=== PATIENT | female | born 1945 | race Caucasian/White ===

== ENCOUNTER 2022-11-02 09:37 | Emergency (ER) | payer OTHER, SELFPAY ==
[2022-11-02] VITALS (24 sets, daily range): BP systolic 177–236; BP diastolic 72–99; PULSE 55–79; RESP 16; TEMP 36.2–36.5; O2SAT 96–100; BMI 22.7
--- NOTE | 2022-11-02 10:28 | CRLHL7_ITS ---
For Patients: As a result of the Century Cures Act, medical imaging exams and procedure reports are released immediately into your electronic medical record. You may view this report before your referring provider. If you have questions, please contact your health care provider. INDICATION: Memory loss, confusion TECHNIQUE: CT head without contrast. COMPARISON: None FINDINGS: CSF spaces: Within normal limits for age. Brain parenchyma: The lopez-white differentiation is normal. No sign of mass, hemorrhage, or midline shift. Skull base and calvarium: The visualized paranasal sinuses and mastoid air cells demonstrate no acute or significant findings. The visualized orbits are grossly unremarkable. No skull fractures. IMPRESSION: Unremarkable noncontrast head CT. Dictated by Yuri Otto MD @ 11/02/2022 12:18:18 PM Please note that all CT scans at this facility use dose modulation, iterative reconstruction, and/or weight-based dosing when appropriate to reduce radiation dose to as low as reasonably achievable. Dictated by: Yuri Otto MD @ 11/02/2022 12:18:23 (Electronically Signed)
--- NOTE | 2022-11-02 10:28 | ED.GENADULT ---
HPI - General Adult General Time Seen by Provider: 10:31 Date Seen: 11/02/22 Chief complaint: Neuro Symptoms/Altered Deficit Stated complaint: neurological/memory issues Time Seen by Provider: 11/02/22 09:38 Source: patient and family Mode of arrival: ambulatory Limitations: no limitations History of Present Illness HPI narrative: Patient is a 77-year-old female with a history of high blood pressure, hypothyroidism presenting to emergency department for increased memory loss. Patient has been being evaluated for Alzheimer in the past and has been started on donepezil. Her states her memory losses been worse over the past 2 weeks. She stated she has concerns of brain bleed in 1 week and will need a brain scan to make sure. Her states that he will be talking to her normally when she will randomly forget what they were talking about. Her son states that he has also noticed memory issues but has not noticed as profound problems as the patient and . She does have a neurologist appointment scheduled for January. She was able to remember when she schedule it in when it is. She spoke to them on the phone and they are trying to get her in sooner. She denies weakness, numbness, headache, vision changes, nausea, chest pain, shortness of breath. Related Data Home Medications Medication Instructions Recorded Confirmed aspirin 81 mg capsule 81 mg PO DAILY 11/02/22 11/02/22 donepezil 10 mg tablet 10 mg PO DAILY 11/02/22 11/02/22 latanoprost 0.005 % eye drops 1 drp ophthalmic (eye) QPM 11/02/22 11/02/22 levothyroxine 25 mcg tablet 25 mcg PO DAILY 11/02/22 11/02/22 losartan 50 mg tablet 50 mg PO DAILY 11/02/22 11/02/22 sertraline 25 mg tablet 50 mg PO QPM 11/02/22 11/02/22 simvastatin 20 mg tablet 20 mg PO QPM 11/02/22 11/02/22 Allergies Allergy/AdvReac Type Severity Reaction Status Date / Time No Known Drug Allergies Allergy Verified 11/02/22 10:09 [facility] Social History Smoking Status: Never smoker Do you use any of these nicotine containing products: None Second hand tobacco smoke exposure: No How often do you have a drink containing alcohol: 4 or more times a week How many standard drinks containing alcohol do you have on a typical day: 1 or 2 AUDIT-C Alcohol total score: 4 Non-prescribed substance use: denies use service: No Exam Const: Vital Signs, click to edit/add: Vital Signs - 24 hr 11/02/22 10:11 11/02/22 10:17 11/02/22 10:21 Temperature 97.7 F Pulse Rate 79 61 Pulse Rate [Pulse Oximeter] 69 Respiratory Rate 16 Blood Pressure 187/85 H Blood Pressure [Le ft Upper Arm] 192/72 H Pulse Oximetry 99 96 99 Oxygen Delivery Me thod Room Air 11/02/22 10:22 11/02/22 10:30 11/02/22 10:42 Temperature Pulse Rate 64 64 60 Pulse Rate [Pulse Oximeter] Respiratory Rate 16 Blood Pressure 191/89 H 195/83 H Blood Pressure [Le ft Upper Arm] Pulse Oximetry 99 99 100 Oxygen Delivery Me thod 11/02/22 10:45 11/02/22 11:04 11/02/22 11:15 Temperature Pulse Rate 63 59 L 57 L Pulse Rate [Pulse Oximeter] Respiratory Rate Blood Pressure Blood Pressure [Le ft Upper Arm] Pulse Oximetry 99 99 98 Oxygen Delivery Me thod 11/02/22 11:22 11/02/22 11:23 11/02/22 11:30 Temperature Pulse Rate 58 L 57 L 60 Pulse Rate [Pulse Oximeter] Respiratory Rate 16 Blood Pressure 203/83 H Blood Pressure [Le ft Upper Arm] Pulse Oximetry 96 99 100 Oxygen Delivery Me thod 11/02/22 11:42 11/02/22 11:45 11/02/22 12:00 Temperature Pulse Rate 57 L 58 L 55 L Pulse Rate [Pulse Oximeter] Respiratory Rate 16 Blood Pressure 203/96 H Blood Pressure [Le ft Upper Arm] Pulse Oximetry 100 98 100 Oxygen Delivery Me thod 11/02/22 12:03 11/02/22 12:15 11/02/22 12:23 Temperature Pulse Rate 61 63 61 Pulse Rate [Pulse Oximeter] Respiratory Rate Blood Pressure 188/82 H 236/99 H Blood Pressure [Le ft Upper Arm] Pulse Oximetry 97 99 99 Oxygen Delivery Me thod Course Vital Signs Vital signs: Initial Vital Signs Temperature 97.7 F 11/02/22 10:11 Temperature Source Temporal Artery Scan 11/02/22 10:11 Pulse Rate 69 11/02/22 10:11 Pulse Rhythm Regular 11/02/22 10:11 Pulse Strength 3+ Normal 11/02/22 10:11 Respiratory Rate 16 11/02/22 10:11 Blood Pressure 192/72 H 11/02/22 10:11 Blood Pressure Mean 112 H 11/02/22 10:11 Blood Pressure Position Supine 11/02/22 10:11 Pulse Oximetry 99 11/02/22 10:11 Oxygen Delivery Method Room Air 11/02/22 10:11 Vital Signs Temperature 97.7 F 11/02/22 10:11 Pulse Rate 69 11/02/22 10:11 Respiratory Rate 16 11/02/22 10:11 Blood Pressure 192/72 H 11/02/22 10:11 Pulse Oximetry 99 11/02/22 10:11 Oxygen Delivery Method Room Air 11/02/22 10:11 Temperature 97.7 F 11/02/22 10:11 Pulse Rate 61 11/02/22 12:23 Respiratory Rate 16 11/02/22 11:42 Blood Pressure 236/99 H 11/02/22 12:23 Pulse Oximetry 99 11/02/22 12:23 Oxygen Delivery Method Room Air 11/02/22 10:11 Medical Decision Making MDM Narrative Medical decision making narrative: Patient is a 77-year-old female history of dementia, hypertension presenting to the emergency department for concerns of worsening memory loss. Her states for the past couple weeks she would have episodes with use only forget what they are talking about. She does have known issues with memory loss and is on medication therapy they thought this was worse. They wanted, and re-evaluate to make sure nothing worse is occurring. She has follow-up with Neurology in January they are trying to get her in sooner. Patient denies any other symptoms at this time. Considering her age moved to for workup including CBC, CMP, urinalysis, head CT without contrast, EKG, troponin. Patient has not been returned showing no concerning abnormalities. Sodium was slightly low at 133 but this is not of concern at this time. EKG was reviewed by myself showed no concerning abnormalities at this time. No previous EKGs to review. CT scan of the head showed no acute abnormalities. Patient was having elevated blood pressure this that would go into the low 200 systolic we. I gave a repeat dose of her home losartan. Right after this here her blood pressure did improve to 177/86. Due to this to the hydralazine that was initially ordered was not given. The patient's symptoms are all likely secondary to dementia. Patient also make ups of depression and thoughts of suicide over the past few days. She states it is due to worsen and loss and she is scared because to more family history of Alzheimer's and saw what did did to her family members. She states she has no plans to hurt herself and examined as you would never actually hurt herself. Spoke to her, her son, her in our own appointment they feel safe taking her home at this time. Do this patient will be discharged home. Differential Diagnosis Differential Diagnosis: Alzheimer's dementia, electrolyte imbalance, stroke, infection Medical Records Medical records reviewed: Yes I reviewed the patient's medical records Lab Data Lab results reviewed: Yes I reviewed the patient's lab results Labs: Lab Results 11/02/22 11/02/22 Range/Units 10:45 10:59 WBC 6.03 (4.50-11.00) K/uL RBC 4.36 (4.00-5.20) m/uL Hgb 13.7 (12.0-16.0) gm/dL Hct 41.3 (33.0-51.0) % MCV 95 (80-100) fL MCH 31 (26-34) pg MCHC 33 (32-36) gm/dL RDW Coeff of Mimi 11.9 (11.5-15.5) % Plt Count 242 (140-440) K/uL Neut % (Auto) 58.6 (42.0-72.0) % Lymph % (Auto) 29.4 (20-44) % [place] % (Auto) 9.3 (0.0-11.0) % Eos % (Auto) 2.2 (0.0-7.0) % Baso % (Auto) 0.5 (0.0-3.0) % Neut # (Auto) 3.54 (1.7-7.0) K/uL Lymph # (Auto) 1.77 (0.90-2.90) K/uL [place] # (Auto) 0.60 (0.00-0.90) K/UL Eos # (Auto) 0.13 (0.00-0.50) K/uL Baso # (Auto) 0.03 (0.00-0.30) K/uL Abs Immat Gran (auto) 0.00 (0.00-0.30) K/uL Imm/Tot Granulo (auto) 0.0 % Sodium 133 L (135-149) mmol/L Potassium 4.1 (3.6-5.1) mmol/L Chloride 100 (96-114) mmol/L Carbon Dioxide 27 (20-32) mmol/L BUN 12 (7-30) mg/dL Creatinine 0.7 (0.5-1.5) mg/dL Estimated Creat Clear 39.59 Estimated GFR 90 ml/min Glucose 100 (60-115) mg/dL Calcium 9.0 (8.4-10.6) mg/dL Total Bilirubin 0.9 (0.1-1.5) mg/dL AST 28 (12-35) U/L ALT 23 (4-35) U/L Alkaline Phosphatase 65 (40-150) U/L Troponin I < 0.01 L (0.01-0.04) ng/mL Total Protein 7.0 (6.0-8.3) g/dL Albumin 4.4 (3.3-5.0) g/dL Urine Color Yellow (Yellow) Urine Appearance Clear (Clear) Urine pH 7.5 (5.0-8.5) Ur Specific [place] 1.015 (1.000-1.030) Urine Protein Negative (Negative) Urine Glucose (UA) Negative (Negative) Urine Ketones Negative (Negative) Urine Blood Negative (Negative) Urine Nitrite Negative (Negative) Urine Bilirubin Negative (Negative) Urine Urobilinogen 0.2 (0.2-1.0) Ur Leukocyte Esterase Negative (Negative) Urine RBC 0-2 (0-2) Urine WBC 0-2 (0-5) Ur Squamous Epith Cells None (None-Few) Urine Bacteria None (None) Imaging Data CT scan - head: Attestation: I have reviewed the pertinent imaging results. ECG Data Attestation: I personally reviewed and interpreted this ECG as follows: (Sinus bradycardia, normal intervals, normal axis, no ST or T-wave abnormalities seen.) Prior ECG tracings: not available for review Discharge Plan Discharge Clinical Impression: Memory changes Patient Disposition: Home, Self-Care Condition: Stable Instructions: Dementia (ED) Additional Instructions: Follow-up with your neurologist. Return to emergency department for new or worsening symptoms. Prescriptions: No Action donepezil 10 mg tablet 10 mg PO DAILY losartan 50 mg tablet 50 mg PO DAILY latanoprost 0.005 % drops 1 drp ophthalmic (eye) QPM levothyroxine 25 mcg tablet 25 mcg PO DAILY sertraline 25 mg tablet 50 mg PO QPM simvastatin 20 mg tablet 20 mg PO QPM aspirin 81 mg capsule 81 mg PO DAILY Follow Up/Referrals: Andra Escalante MD [Primary Care Provider] - Stand Alone Forms: [employer] Info Instructions
[2022-11-02 10:59] LABS: Basophils Absolute Auto 0.03 K/uL (0.00-0.30); Basophils Percent Auto 0.5 % (0.0-3.0); Eosinophils Absolute Auto 0.13 K/uL (0.00-0.50); Eosinophils Percent Auto 2.2 % (0.0-7.0); Hematocrit 41.3 % (33.0-51.0); Hemoglobin* 13.7 gm/dL (12.0-16.0); Lymphocytes Absolute Auto 1.77 K/uL (0.90-2.90); Lymphocytes Percent Auto 29.4 % (20-44); Mean Corpuscular HGB Conc 33 gm/dL (32-36); Mean Corpuscular Hemoglobin 31 pg (26-34); Mean Corpuscular Volume 95 fL (80-100); Monocytes Percent Auto 9.3 % (0.0-11.0); Neutrophils Absolute Auto 3.54 K/uL (1.7-7.0); Neutrophils Percent Auto 58.6 % (42.0-72.0); Platelet Count* 242 K/uL (140-440); RDW Coefficient of Variation % 11.9 % (11.5-15.5); Red Blood Count 4.36 m/uL (4.00-5.20); White Blood Count* 6.03 K/uL (4.50-11.00)
[2022-11-02 11:02] LABS: Slide Review Reflex No
[2022-11-02 11:09] LABS: Albumin* 4.4 g/dL (3.3-5.0); Chloride* 100 mmol/L (96-114); Potassium* 4.1 mmol/L (3.6-5.1); Sodium* 133 mmol/L (135-149)
[2022-11-02 11:10] LABS: Appearance Urine Clear (Clear); Bilirubin Urine Negative (Negative); Blood Urine Negative (Negative); Color Urine Yellow (Yellow); Glucose Urine Negative (Negative); Ketones Urine Negative (Negative); Leukocyte Esterase Urine Negative (Negative); Nitrite Urine Negative (Negative); Protein Urine Negative (Negative); Specific Gravity Urine 1.015 (1.000-1.030); Urobilinogen Urine 0.2 (0.2-1.0); pH Urine 7.5 (5.0-8.5)
[2022-11-02 11:11] LABS: Bilirubin Total* 0.9 mg/dL (0.1-1.5); Creatinine* 0.7 mg/dL (0.5-1.5); Est. Creatinine Clearance* 39.59; Estimated Glomerular Filt Rate 90 ml/min
[2022-11-02 11:12] LABS: Alanine Aminotransferase* 23 U/L (4-35); Alkaline Phosphatase* 65 U/L (40-150); Aspartate Amino Transferase* 28 U/L (12-35); Blood Urea Nitrogen* 12 mg/dL (7-30); Carbon Dioxide* 27 mmol/L (20-32); Glucose* 100 mg/dL (60-115)
[2022-11-02 11:19] LABS: RBC Urine 0-2 (0-2); WBC Urine 0-2 (0-5)
--- NOTE | 2022-11-02 11:25 | ED.NURSE ---
notified of elevated blood pressure.
[2022-11-02 11:26] LABS: Troponin I* < 0.01 ng/mL (0.01-0.04)
[2022-11-02] MEDS: LOSARTAN POTASSIUM 50 MG TABLET PO (11:39)
--- NOTE | 2022-11-02 12:25 | ED.NURSE ---
notified of continued elevated BP.
== END 2022-11-02 13:18 | disposition home or self-care (01) ==
PROVIDERS: Emergency Provider Student in an Organized Health Care Education/Training Program; PCP Family Medicine
DX: F03.90 Unspecified dementia, unspecified severity, without behavioral disturbance, psychotic disturbance, mood disturbance, and anxiety (principal)
CPT/HCPCS: 36415; 70450; 80053; 81001; 84484; 85025; 93005; 99283; 99284; 99285; A9270; J0360

== ENCOUNTER 2023-03-13 16:39 | Emergency (ER) | payer OTHER, SELFPAY ==
[2023-03-13 16:50] VITALS: BP 154/81; PULSE 63; RESP 18; TEMP 36.9; O2SAT 99; BMI 22.1
--- NOTE | 2023-03-13 18:06 | ED.GENADULT ---
HPI - General Adult General Time Seen by Provider: 18:06 Date Seen: 03/13/23 Chief complaint: Nausea/Vomiting Stated complaint: Severe diarrhea for days, nausea Time Seen by Provider: 03/13/23 18:04 Source: patient Mode of arrival: ambulatory History of Present Illness HPI narrative: Keturah is a 77-year-old female with hypertension, hypothyroidism, Alzheimer's dementia presents emergency department via private car and with nausea and diarrhea. Patient states over the last 2 days she has had increased diarrhea, multiple episodes of nonbloody watery diarrhea. No fevers or chills, no chest pain or shortness of breath, she denies any abdominal pain, she has had nausea but no vomiting, she has been eating and drinking but last, no sick contacts, no abnormal foods. She has had increased weakness, myalgias, she had a negative COVID test yesterday. She denies any falls. She has had some lightheadedness but no dizziness. No other concerns at this time. Related Data Home Medications Medication Instructions Recorded Confirmed aspirin 81 mg capsule 81 mg PO DAILY 11/02/22 03/13/23 donepezil 10 mg tablet 10 mg PO DAILY 11/02/22 03/13/23 latanoprost 0.005 % eye drops 1 drp ophthalmic (eye) QPM 11/02/22 03/13/23 levothyroxine 25 mcg tablet 25 mcg PO DAILY 11/02/22 03/13/23 losartan 50 mg tablet 50 mg PO DAILY 11/02/22 03/13/23 sertraline 25 mg tablet 50 mg PO QPM 11/02/22 03/13/23 simvastatin 20 mg tablet 20 mg PO QPM 11/02/22 03/13/23 Allergies Allergy/AdvReac Type Severity Reaction Status Date / Time No Known Drug Allergies Allergy Verified 03/13/23 16:54 Review of Systems Status of ROS: Reports: 10 or more systems reviewed and unremarkable except as noted in History and below PFSH PFS Social History Smoking Status: Never smoker Do you use any of these nicotine containing products: None Second hand tobacco smoke exposure: No How often do you have a drink containing alcohol: 4 or more times a week How many standard drinks containing alcohol do you have on a typical day: 1 or 2 AUDIT-C Alcohol total score: 4 Non-prescribed substance use: denies use service: No Exam Narrative: Exam Narrative: General: No obvious distress sitting comfortably, nontoxic in appearance HEENT: Oral mucosa is moist, pupils equal round reactive to light, extraocular muscles intact Neck: Supple, full range of motion Lungs: Clear to auscultation bilaterally Heart: Normal sinus rhythm S1-S2 Abdomen: Soft, nontender, bowel sounds present Muscle skeletal: No lower extremity edema, +5 strength upper lower extremities Neuro: Alert awake and oriented x3 Const: Vital Signs, click to edit/add: Vital Signs - 24 hr 03/13/23 16:50 03/13/23 19:23 Temperature 98.4 F Pulse Rate [Pulse Oximeter] 63 61 Respiratory Rate 18 18 Blood Pressure [Ri ght Upper Arm] 154/81 H 175/75 H Pulse Oximetry 99 98 Oxygen Delivery Me thod Room Air Room Air Course Course ED Course: 6:00 pm: AIDET performed, vitals are stable at this time, suspect viral etiology, will give 0.9 normal saline bolus, will check CBC, CRP, lipase and metabolic panel, GI panel. Patient has no nausea at this time. Differential diagnosis include viral gastroenteritis, food poisoning, bowel obstruction, C difficile, Campylobacter, Shigella, rotavirus, norovirus, medication side effects, dysentery, diverticulitis, Crohn's disease and colitis. Reevaluation(s) Time of Reevaluation #1: 19:15 Reevaluation #1: Patient was updated on her lab results, CBC showed no leukocytosis, normal hemoglobin, metabolic panel showed normal renal function and electrolytes, CRP was negative as well as lipase, she was given the above care and did well she, she was tolerating orals, she was unable to give a stool sample, plan to discharge home with a container to bring back to the emergency department, she should follow up with primary care provider over the next 7-10 days, reasons return were given. All questions answered. Vital Signs Vital signs: Initial Vital Signs Temperature 98.4 F 03/13/23 16:50 Temperature Source Temporal Artery Scan 03/13/23 16:50 Pulse Rate 63 03/13/23 16:50 Pulse Rhythm Regular 03/13/23 16:50 Respiratory Rate 18 03/13/23 16:50 Blood Pressure 154/81 H 03/13/23 16:50 Blood Pressure Mean 105 03/13/23 16:50 Blood Pressure Position Sitting 03/13/23 16:50 Pulse Oximetry 99 03/13/23 16:50 Oxygen Delivery Method Room Air 03/13/23 16:50 Vital Signs Temperature 98.4 F 03/13/23 16:50 Pulse Rate 63 03/13/23 16:50 Respiratory Rate 18 03/13/23 16:50 Blood Pressure 154/81 H 03/13/23 16:50 Pulse Oximetry 99 03/13/23 16:50 Oxygen Delivery Method Room Air 03/13/23 16:50 Temperature 98.4 F 03/13/23 16:50 Pulse Rate 61 03/13/23 19:23 Respiratory Rate 18 03/13/23 19:23 Blood Pressure 175/75 H 03/13/23 19:23 Pulse Oximetry 98 03/13/23 19:23 Oxygen Delivery Method Room Air 03/13/23 19:23 Medications Administered Medications: Discontinued Medications Generic Name Dose Route Start Last Admin Trade Name Freq PRN Reason Stop Dose Admin Sodium Chloride 1,000 mls @ 1,000 mls/hr 03/13/23 18:05 03/13/23 19:54 0.9 % Sodium Chloride 1000 Ml IV 03/13/23 19:04 Infused .Q1H DWAINE Infusion Medical Decision Making Lab Data Labs: Lab Results 03/13/23 Range/Units 18:42 WBC 8.24 (4.50-11.00) K/uL RBC 4.69 (4.00-5.20) m/uL Hgb 14.9 (12.0-16.0) gm/dL Hct 45.5 (33.0-51.0) % MCV 97 (80-100) fL MCH 32 (26-34) pg MCHC 33 (32-36) gm/dL RDW Coeff of Mimi 11.8 (11.5-15.5) % Plt Count 258 (140-440) K/uL Neut % (Auto) 62.3 (42.0-72.0) % Lymph % (Auto) 26.9 (20-44) % [place] % (Auto) 8.4 (0.0-11.0) % Eos % (Auto) 2.2 (0.0-7.0) % Baso % (Auto) 0.2 (0.0-3.0) % Neut # (Auto) 5.13 (1.7-7.0) K/uL Lymph # (Auto) 2.22 (0.90-2.90) K/uL Turner # (Auto) 0.70 (0.00-0.90) K/UL Eos # (Auto) 0.18 (0.00-0.50) K/uL Baso # (Auto) 0.02 (0.00-0.30) K/uL Abs Immat Gran (auto) 0.00 (0.00-0.30) K/uL Imm/Tot Granulo (auto) 0.0 % Sodium 139 (135-149) mmol/L Potassium 4.4 (3.6-5.1) mmol/L Chloride 100 (96-114) mmol/L Carbon Dioxide 29 (20-32) mmol/L Anion Gap 10 (7-15) mEq/L BUN 13 (7-30) mg/dL Creatinine 0.6 (0.5-1.5) mg/dL Estimated Creat Clear 39.59 Estimated GFR 93 ml/min Glucose 99 (60-115) mg/dL Calcium 9.8 (8.4-10.6) mg/dL Total Bilirubin 1.0 (0.1-1.5) mg/dL AST 27 (12-35) U/L ALT 19 (4-35) U/L Alkaline Phosphatase 60 (40-150) U/L C-Reactive Protein < 0.5 L (0.5-1.0) mg/dL Total Protein 8.0 (6.0-8.3) g/dL Albumin 5.1 H (3.3-5.0) g/dL Lipase 102 (23-300) U/L Discharge Plan Discharge Clinical Impression: Diarrhea, Nausea Patient Disposition: Home, Self-Care Instructions: Acute Diarrhea (ED) Additional Instructions: Follow-up with primary care provider over the next 7-10 days. Activity Level: Activity as Tolerated Prescriptions: No Action donepezil 10 mg tablet 10 mg PO DAILY losartan 50 mg tablet 50 mg PO DAILY latanoprost 0.005 % drops 1 drp ophthalmic (eye) QPM levothyroxine 25 mcg tablet 25 mcg PO DAILY sertraline 25 mg tablet 50 mg PO QPM simvastatin 20 mg tablet 20 mg PO QPM aspirin 81 mg capsule 81 mg PO DAILY Follow Up/Referrals: Andra Escalante MD [Primary Care Provider] - Stand Alone Forms: [employer] Info Instructions
[2023-03-13] MEDS: 0.9 % SODIUM CHLORIDE 1000 ml 1,000 ML IV (18:50)
[2023-03-13 19:01] LABS: Basophils Absolute Auto 0.02 K/uL (0.00-0.30); Basophils Percent Auto 0.2 % (0.0-3.0); Eosinophils Absolute Auto 0.18 K/uL (0.00-0.50); Eosinophils Percent Auto 2.2 % (0.0-7.0); Hematocrit 45.5 % (33.0-51.0); Hemoglobin* 14.9 gm/dL (12.0-16.0); Lymphocytes Absolute Auto 2.22 K/uL (0.90-2.90); Lymphocytes Percent Auto 26.9 % (20-44); Mean Corpuscular HGB Conc 33 gm/dL (32-36); Mean Corpuscular Hemoglobin 32 pg (26-34); Mean Corpuscular Volume 97 fL (80-100); Monocytes Percent Auto 8.4 % (0.0-11.0); Neutrophils Absolute Auto 5.13 K/uL (1.7-7.0); Neutrophils Percent Auto 62.3 % (42.0-72.0); Platelet Count* 258 K/uL (140-440); RDW Coefficient of Variation % 11.8 % (11.5-15.5); Red Blood Count 4.69 m/uL (4.00-5.20); White Blood Count* 8.24 K/uL (4.50-11.00)
[2023-03-13 19:17] LABS: Slide Review Reflex No
[2023-03-13 19:18] LABS: Albumin* 5.1 g/dL (3.3-5.0); Chloride* 100 mmol/L (96-114); Sodium* 139 mmol/L (135-149)
[2023-03-13 19:19] LABS: Potassium* 4.4 mmol/L (3.6-5.1)
[2023-03-13 19:21] LABS: Alanine Aminotransferase* 19 U/L (4-35); Alkaline Phosphatase* 60 U/L (40-150); Anion Gap 10 mEq/L (7-15); Aspartate Amino Transferase* 27 U/L (12-35); Blood Urea Nitrogen* 13 mg/dL (7-30); Calcium* 9.8 mg/dL (8.4-10.6); Carbon Dioxide* 29 mmol/L (20-32); Creatinine* 0.6 mg/dL (0.5-1.5); Est. Creatinine Clearance* 39.59; Estimated Glomerular Filt Rate 93 ml/min; Glucose* 99 mg/dL (60-115); Lipase* 102 U/L (23-300)
[2023-03-13 19:23] VITALS: BP 175/75; PULSE 61; RESP 18; O2SAT 98
[2023-03-13 20:09] LABS: C Reactive Protein* < 0.5 mg/dL (0.5-1.0)
--- NOTE | 2023-03-13 20:10 | ED.NURSE ---
pt report given to RN
== END 2023-03-13 20:33 | disposition home or self-care (01) ==
PROVIDERS: Emergency Provider Student in an Organized Health Care Education/Training Program; PCP Family Medicine
DX: R19.7 Diarrhea, unspecified (principal); R11.0 Nausea
CPT/HCPCS: 36415; 80053; 83690; 85025; 86140; 86141; 87505; 99283; J7030